=== PATIENT | female | born 1935 | race African-American/Black ===

== ENCOUNTER 2022-02-25 14:25 | Inpatient (IN) ==
[~2022-02-25 14:25] MED LIST: NOREPINEPHRINE 4 MG/4 ML VIAL IV ONE
[2022-02-25] MEDS: NOREPINEPHRINE 8 MG in SODIUM CHLORIDE 0.9% 242 ML IV PRN ×2 (14:55→22:21)
[2022-02-25 15:11] LABS: Basophils # 0.1 10*3/uL (0.0-0.2); Basophils % 0.6 % (0.0-0.8); Eosinophils # 0.1 10*3/uL (0.0-0.87); Eosinophils % 0.7 % (0.00-10.9); Hematocrit 36.5 VOL% (35.7-47.0); Hemoglobin 10.9 GM/DL (12.0-16.0); Immature Granulocytes % 5.1 %; Immature Granulocytes Absolute 0.61 #; Lymphocytes # 3.9 10*3/uL (1.4-4.0); Mean Corpuscular HGB Conc 29.9 GM/DL (32-36); Mean Corpuscular Volume 95.3 FL (87-102); Mean Platelet Volume 9.1 FL (9.6-12.0); Monocytes # 0.7 10*3/uL (0.11-0.8); Monocytes % 5.8 % (1.7-12.7); NRBC # 0.04 10*3/uL; Neutrophils % 55.8 % (38.7-73.9); Platelet Count 508 T/CUMM (130-400); Red Blood Count 3.83 MC/CUMM (3.8-5.5); White Blood Count 12.1 T/CUMM (4-12)
[2022-02-25 15:22] LABS: Calcium 8.6 MG/DL (8.5-10.1); Osmolality,Calculated 332.7 MOS/KG (273-304); Potassium 4.5 MMOL/L (3.5-5.1)
[2022-02-25] MEDS ORDERED: MORPHINE 2 MG/1 ML SYRINGE IV PRN (15:34)
[2022-02-25] MEDS ORDERED: ALBUTEROL 2.5 MG/3 ML NEB RESP TX PRN (15:34)
[2022-02-25 15:45] LABS: Lymphocytes 28 % (20-55); Metamyelocytes 2 %; Myelocytes 1 %; Platelet Estimate Increased; Total Cells Counted 100
[2022-02-25 15:46] LABS: Anisocytosis Slight; Macrocytosis Slight; Microcytosis Slight
[2022-02-25] MEDS ORDERED: HYDROCORTISONE 100 MG VIAL IV STA (15:46)
[2022-02-25 15:47] LABS: Polychromasia Slight
[2022-02-25] MEDS: LACTATED RINGERS 1,000 ML IV SCH (15:55)
[2022-02-25] MEDS: LEVOFLOXACIN INJ 500 MG/100 ML PREMIX IV SCH (16:10)
[2022-02-25] MEDS: ENOXAPARIN 30 MG/0.3 ML SYRINGE SUBCUT SCH (16:10)
[2022-02-25] MEDS: PANTOPRAZOLE 40 MG VIAL IV SCH (16:11)
[2022-02-25] MEDS ORDERED: NOREPINEPHRINE 4 MG/4 ML VIAL IV ONE (18:03)
[2022-02-25] MEDS: AMPICILLIN INJ 1,000 MG in SODIUM CHLORIDE 0.9% 100 ML IV SCH (20:30)
[2022-02-25] MEDS: HYDROCORTISONE 100 MG VIAL IV SCH (20:48)
[2022-02-26 01:30] LABS: Calcium 8.2 MG/DL (8.5-10.1); Osmolality,Calculated 330.6 MOS/KG (273-304); Potassium 4.6 MMOL/L (3.5-5.1)
[2022-02-26 01:37] LABS: Basophils # 0.1 10*3/uL (0.0-0.2); Basophils % 0.4 % (0.0-0.8); Eosinophils % 0.1 % (0.00-10.9); Hematocrit 34.5 VOL% (35.7-47.0); Hemoglobin 10.2 GM/DL (12.0-16.0); Lymphocytes # 0.7 10*3/uL (1.4-4.0); Lymphocytes % 5.4 % (21.3-54.2); Mean Corpuscular HGB Conc 29.6 GM/DL (32-36); Mean Corpuscular Volume 96.6 FL (87-102); Mean Platelet Volume 9.1 FL (9.6-12.0); Monocytes # 0.3 10*3/uL (0.11-0.8); Monocytes % 1.9 % (1.7-12.7); NRBC # 0.07 10*3/uL; Neutrophils % 86.2 % (38.7-73.9); Platelet Count 486 T/CUMM (130-400); Red Blood Count 3.57 MC/CUMM (3.8-5.5); Red Cell Distribution Width 18.4 % (9.3-17.3); White Blood Count 13.4 T/CUMM (4-12)
[2022-02-26 01:44] LABS: Lymphocytes 3 % (20-55); Nucleated Red Blood Cells 3 /100 WBC (0-5); Total Cells Counted 100
[2022-02-26 01:45] LABS: Platelet Estimate Increased
[2022-02-26] MEDS: NOREPINEPHRINE 8 MG in SODIUM CHLORIDE 0.9% 242 ML IV PRN (02:06)
[2022-02-26] MEDS: HYDROCORTISONE 100 MG VIAL IV SCH ×3 (02:52→16:54)
[2022-02-26] MEDS ORDERED: NOREPINEPHRINE 16 MG in SODIUM CHLORIDE 0.9% 484 ML IV PRN (04:16)
[2022-02-26] MEDS: LACTATED RINGERS 1,000 ML IV SCH ×2 (05:10→14:50)
[2022-02-26] MEDS: NOREPINEPHRINE 16 MG in SODIUM CHLORIDE 0.9% 484 ML IV PRN ×2 (06:14→18:42)
[2022-02-26] MEDS: AMPICILLIN INJ 1,000 MG in SODIUM CHLORIDE 0.9% 100 ML IV SCH ×2 (08:41→20:50)
[2022-02-26] MEDS ORDERED: HYDROCORTISONE 100 MG VIAL IV SCH (10:30)
[2022-02-26] MEDS: INSULIN LISPRO 100 UNIT/ML SUBCUT SCH ×3 (12:30→22:12)
[2022-02-26] MEDS ORDERED: DIGOXIN 0.5 MG/2 ML AMP IV ONE ×2 (14:24→15:00)
[2022-02-26] MEDS: PANTOPRAZOLE 40 MG VIAL IV SCH (16:54)
[2022-02-26] MEDS: ENOXAPARIN 30 MG/0.3 ML SYRINGE SUBCUT SCH (16:54)
[2022-02-26] MEDS ORDERED: AMIODARONE INJ 150 MG in DEXTROSE 5% 100 ML IV ONE (16:56)
[2022-02-27] MEDS: LACTATED RINGERS 1,000 ML IV SCH ×3 (05:14→23:23)
[2022-02-27 06:03] LABS: Basophils % 0.1 % (0.0-0.8); Hematocrit 28.3 VOL% (35.7-47.0); Hemoglobin 8.5 GM/DL (12.0-16.0); Immature Granulocytes % 4.4 %; Immature Granulocytes Absolute 0.59 #; Lymphocytes # 1.1 10*3/uL (1.4-4.0); Lymphocytes % 7.8 % (21.3-54.2); Mean Corpuscular Volume 95.6 FL (87-102); Mean Platelet Volume 9.1 FL (9.6-12.0); Monocytes # 0.5 10*3/uL (0.11-0.8); Monocytes % 3.6 % (1.7-12.7); NRBC # 0.05 10*3/uL; Neutrophils % 84.1 % (38.7-73.9); Platelet Count 323 T/CUMM (130-400); Red Blood Count 2.96 MC/CUMM (3.8-5.5); Red Cell Distribution Width 18.7 % (9.3-17.3); White Blood Count 13.4 T/CUMM (4-12)
[2022-02-27 06:22] LABS: Osmolality,Calculated 331.9 MOS/KG (273-304); Potassium 4.7 MMOL/L (3.5-5.1)
[2022-02-27 06:40] LABS: Eosinophils 1 % (0-10); Lymphocytes 4 % (20-55); Platelet Estimate Adequate; Total Cells Counted 100
[2022-02-27] MEDS: INSULIN LISPRO 100 UNIT/ML SUBCUT SCH ×4 (08:14→20:47)
[2022-02-27] MEDS: HYDROCORTISONE 100 MG VIAL IV SCH ×3 (08:40→17:54)
[2022-02-27] MEDS: AMPICILLIN INJ 1,000 MG in SODIUM CHLORIDE 0.9% 100 ML IV SCH ×2 (08:41→20:46)
[2022-02-27] MEDS: PANTOPRAZOLE 40 MG VIAL IV SCH (15:46)
[2022-02-27] MEDS: ENOXAPARIN 30 MG/0.3 ML SYRINGE SUBCUT SCH (15:46)
[2022-02-27] MEDS: LEVOFLOXACIN INJ 500 MG/100 ML PREMIX IV SCH (15:46)
[2022-02-27] MEDS ORDERED: NOREPINEPHRINE 4 MG/4 ML VIAL IV ONE (16:16)
[2022-02-27] MEDS: NOREPINEPHRINE 16 MG in SODIUM CHLORIDE 0.9% 484 ML IV PRN (16:33)
[2022-02-28] MEDS: HYDROCORTISONE 100 MG VIAL IV SCH ×3 (01:26→21:15)
[2022-02-28 04:42] LABS: Basophils % 0.1 % (0.0-0.8); Hemoglobin 7.5 GM/DL (12.0-16.0); Immature Granulocytes % 3.3 %; Lymphocytes # 0.7 10*3/uL (1.4-4.0); Lymphocytes % 7.9 % (21.3-54.2); Mean Corpuscular Volume 95.8 FL (87-102); Mean Platelet Volume 9.5 FL (9.6-12.0); Monocytes # 0.3 10*3/uL (0.11-0.8); Monocytes % 2.8 % (1.7-12.7); NRBC # 0.04 10*3/uL; Neutrophils % 85.9 % (38.7-73.9); Platelet Count 243 T/CUMM (130-400); Red Blood Count 2.61 MC/CUMM (3.8-5.5)
[2022-02-28 05:13] LABS: Calcium 7.7 MG/DL (8.5-10.1); Osmolality,Calculated 323.1 MOS/KG (273-304); Potassium 4.1 MMOL/L (3.5-5.1)
[2022-02-28 05:17] LABS: CKMB % 1.82 %
[2022-02-28] MEDS: AMPICILLIN INJ 1,000 MG in SODIUM CHLORIDE 0.9% 100 ML IV SCH ×2 (09:00→21:14)
[2022-02-28] MEDS: LACTATED RINGERS 1,000 ML IV SCH ×2 (09:00→16:45)
[2022-02-28] MEDS: INSULIN LISPRO 100 UNIT/ML SUBCUT SCH ×3 (12:34→21:15)
[2022-02-28] MEDS ORDERED: HYDROCORTISONE 100 MG VIAL IV SCH (13:30)
[2022-02-28] MEDS: ENOXAPARIN 30 MG/0.3 ML SYRINGE SUBCUT SCH (16:17)
[2022-02-28] MEDS: PANTOPRAZOLE 40 MG VIAL IV SCH (21:15)
[2022-03-01] MEDS: LACTATED RINGERS 1,000 ML IV SCH ×2 (01:55→09:58)
[2022-03-01 02:02] VITALS: BP 110/52
[2022-03-01 04:43] LABS: Hematocrit 26.9 VOL% (35.7-47.0); Hemoglobin 7.9 GM/DL (12.0-16.0); Immature Granulocytes % 3.9 %; Immature Granulocytes Absolute 0.35 #; Lymphocytes # 0.8 10*3/uL (1.4-4.0); Mean Corpuscular HGB Conc 29.4 GM/DL (32-36); Mean Corpuscular Volume 97.8 FL (87-102); Mean Platelet Volume 9.3 FL (9.6-12.0); Monocytes # 0.4 10*3/uL (0.11-0.8); Monocytes % 4.8 % (1.7-12.7); NRBC # 0.06 10*3/uL; Neutrophils % 82.3 % (38.7-73.9); Platelet Count 243 T/CUMM (130-400); Red Blood Count 2.75 MC/CUMM (3.8-5.5); Red Cell Distribution Width 19.3 % (9.3-17.3)
[2022-03-01 05:25] LABS: Calcium 7.7 MG/DL (8.5-10.1); Osmolality,Calculated 329.9 MOS/KG (273-304); Potassium 3.5 MMOL/L (3.5-5.1)
[2022-03-01 05:39] LABS: Albumin 1.6 G/DL (3.4-5.0); Bilirubin,Direct 0.25 MG/DL (0.0-0.20); Bilirubin,Indirect 0.2 MG/DL (0.0-1.0); Bilirubin,Total 0.4 MG/DL (0.20-1.00); Total Protein 5.2 G/DL (6.4-8.2)
[2022-03-01] MEDS: AMPICILLIN INJ 1,000 MG in SODIUM CHLORIDE 0.9% 100 ML IV SCH (09:56)
[2022-03-01] MEDS: INSULIN LISPRO 100 UNIT/ML SUBCUT SCH ×4 (09:56→20:29)
[2022-03-01] MEDS: PANTOPRAZOLE 40 MG VIAL IV SCH ×2 (09:57→20:29)
[2022-03-01] MEDS: HYDROCORTISONE 100 MG VIAL IV SCH ×2 (09:57→20:28)
[2022-03-01] MEDS: SODIUM CHLORIDE 23.4% CONC INJ 38.5 MEQ in STERILE WATER INJ 1,000 ML IV SCH ×3 (13:30→23:34)
[2022-03-01] MEDS ORDERED: SODIUM CHLORIDE 0.45% 500 ML IV ONE (15:00)
[2022-03-01] MEDS: LEVOFLOXACIN INJ 500 MG/100 ML PREMIX IV SCH (17:30)
[2022-03-01] MEDS: ENOXAPARIN 30 MG/0.3 ML SYRINGE SUBCUT SCH (17:31)
[2022-03-02 04:28] LABS: Eosinophils % 0.2 % (0.00-10.9); Hematocrit 24.9 VOL% (35.7-47.0); Hemoglobin 7.4 GM/DL (12.0-16.0); Immature Granulocytes % 4.7 %; Immature Granulocytes Absolute 0.42 #; Lymphocytes % 11.2 % (21.3-54.2); Mean Corpuscular HGB Conc 29.7 GM/DL (32-36); Mean Corpuscular Volume 96.5 FL (87-102); Monocytes # 0.4 10*3/uL (0.11-0.8); Monocytes % 3.9 % (1.7-12.7); NRBC # 0.06 10*3/uL; Platelet Count 196 T/CUMM (130-400); Red Blood Count 2.58 MC/CUMM (3.8-5.5); Red Cell Distribution Width 19.2 % (9.3-17.3); White Blood Count 8.9 T/CUMM (4-12)
[2022-03-02 04:55] LABS: Calcium 7.2 MG/DL (8.5-10.1); Osmolality,Calculated 319.3 MOS/KG (273-304); Potassium 3.4 MMOL/L (3.5-5.1)
[2022-03-02] MEDS ORDERED: POTASSIUM CHLORIDE 20 MEQ TABLET PO ONE (05:29)
[2022-03-02] MEDS ORDERED: MAGNESIUM SULF RIDER 2 GM/50 ML PREMIX IV ONE (05:31)
[2022-03-02] MEDS: SODIUM CHLORIDE 23.4% CONC INJ 38.5 MEQ in STERILE WATER INJ 1,000 ML IV SCH ×4 (05:38→15:30)
[2022-03-02] MEDS: INSULIN LISPRO 100 UNIT/ML SUBCUT SCH ×5 (07:16→21:33)
[2022-03-02] MEDS: HYDROCORTISONE 100 MG VIAL IV SCH ×2 (08:10→21:35)
[2022-03-02] MEDS: PANTOPRAZOLE 40 MG VIAL IV SCH ×2 (08:13→21:33)
[2022-03-02] MEDS ORDERED: ZINC OXIDE PASTE 113 GM TUBE TOP PRN (13:21)
[2022-03-02] MEDS ORDERED: LACTATED RINGERS 500 ML IV ONE (16:05)
[2022-03-02] MEDS: ENOXAPARIN 30 MG/0.3 ML SYRINGE SUBCUT SCH (16:31)
[2022-03-03] MEDS: SODIUM CHLORIDE 23.4% CONC INJ 38.5 MEQ in STERILE WATER INJ 1,000 ML IV SCH ×2 (03:34→10:20)
[2022-03-03 05:25] LABS: Basophils % 0.1 % (0.0-0.8); Eosinophils % 0.1 % (0.00-10.9); Hematocrit 25.5 VOL% (35.7-47.0); Hemoglobin 7.5 GM/DL (12.0-16.0); Immature Granulocytes % 5.3 %; Immature Granulocytes Absolute 0.55 #; Lymphocytes # 0.8 10*3/uL (1.4-4.0); Lymphocytes % 7.3 % (21.3-54.2); Mean Corpuscular HGB Conc 29.4 GM/DL (32-36); Mean Corpuscular Volume 98.8 FL (87-102); Mean Platelet Volume 9.6 FL (9.6-12.0); Monocytes # 0.3 10*3/uL (0.11-0.8); Monocytes % 2.9 % (1.7-12.7); Neutrophils % 84.3 % (38.7-73.9); Platelet Count 209 T/CUMM (130-400); Red Blood Count 2.58 MC/CUMM (3.8-5.5); Red Cell Distribution Width 19.5 % (9.3-17.3); White Blood Count 10.4 T/CUMM (4-12)
[2022-03-03 05:42] LABS: Calcium 7.2 MG/DL (8.5-10.1); Osmolality,Calculated 303.4 MOS/KG (273-304); Potassium 3.5 MMOL/L (3.5-5.1)
[2022-03-03 05:59] LABS: Hypochromia Slight; Lymphocytes 2 % (20-55); Microcytosis Slight; Platelet Estimate Adequate; Total Cells Counted 100
[2022-03-03 06:00] LABS: Burr Cells Slight; Ovalocytes Slight
[2022-03-03] MEDS: INSULIN LISPRO 100 UNIT/ML SUBCUT SCH ×2 (07:57→12:11)
[2022-03-03] MEDS: PANTOPRAZOLE 40 MG VIAL IV SCH (08:22)
[2022-03-03] MEDS: HYDROCORTISONE 100 MG VIAL IV SCH (08:22)
[2022-03-03] MEDS ORDERED: cephALEXin 500 MG CAPSULE PO SCH (12:30)
== END 2022-03-03 15:57 | DRG 871 ==
LOC: N.ED 14:25 → SUATTDRO 15:34 → N.EDINP 15:34 → N.ICU 20:31
PROVIDERS: ADMIT Internal Medicine; ATTEND Internal Medicine